=== PATIENT | male | born 1960 | race Caucasian/White ===

== ENCOUNTER 2017-01-04 15:26 | Emergency (ER) | payer OTHER ==
[~2017-01-04] VITALS: Ht 182.9 cm; Wt 113.4 kg
[~2017-01-04 15:26] MED LIST: ASPIRIN EC81 MG PO; BACTRIM DS TAB1 EACH PO; CARVEDILOL25 MG; CLONIDINE1 EAC1; DIFLUCAN150 MG PO; FLUCONAZOLE150 MG PO; FORTAMET500 MG; GUAIFENESIN AC473 ML PO; LISINOPRIL20 MG PO; NORCO 5-325 TA1 EACH PO; NYSTATIN100000 UN1 PO; NYSTATIN15 GM TP; PROAIR HFA8.5 GM IH; PROVENTIL HFA6.7 GM INH; ZITHROMAX250 MG PO; ZOCOR10 MG
[2017-01-04] MEDS ORDERED: LISINOPRIL20 MG PO (17:29)
--- NOTE | 2017-01-05 16:30 | EKG ---
[facility] [address] [facility] [address] [facility] [place] [address] Signed Normal sinus rhythm Normal ECG No previous ECGs available Confirmed by LIZET CHI MD ([id number]) on 01/05/2017 4:30:17 PM Electronically Signed By: LIZET CHI MD 01/05/17 1630 PATIENT NAME: CINTHIANABIL CELIA Electrocardiogram DATE OF : 62 PHYSICIAN: LIZET CHI MD REPORT #: [id number] REPORT IS CONFIDENTIAL AND NOT TO BE RELEASED WITHOUT AUTHORIZATION
== END 2017-01-04 17:39 | disposition home or self-care (01) ==
LOC: ED 15:26
DX: I27.0 Primary pulmonary hypertension (principal); I10 Essential (primary) hypertension; E11.9 Type 2 diabetes mellitus without complications; E78.00 Pure hypercholesterolemia, unspecified; Z88.8 Allergy status to other drugs, medicaments and biological substances; Z79.899 Other long term (current) drug therapy; Z79.82 Long term (current) use of aspirin
CPT/HCPCS: 80053; 85025; 93005; 93010; 99284

== ENCOUNTER 2017-03-05 09:25 | Emergency (ER) | payer OTHER ==
[~2017-03-05] VITALS: Ht 182.9 cm; Wt 117.9 kg
[2017-03-05] MEDS ORDERED: GABAPENTIN300 MG PO (09:37)
[2017-03-05] MEDS ORDERED: HYDROCHLOROTHIA25 MG PO (09:37)
[2017-03-05] MEDS ORDERED: NORCO 5-325 TA1 EACH PO (12:13)
[2017-03-05] MEDS ORDERED: FLAGYL500 MG PO (12:13)
[2017-03-05] MEDS ORDERED: DIFLUCAN150 MG PO (12:13)
[2017-03-05] MEDS ORDERED: ZOFRAN ODT4 MG PO (12:13)
[2017-03-05] MEDS ORDERED: CIPRO500 MG PO (12:13)
== END 2017-03-05 12:49 | disposition home or self-care (01) ==
LOC: ED 09:25
DX: K57.32 Diverticulitis of large intestine without perforation or abscess without bleeding (principal); I10 Essential (primary) hypertension; E78.00 Pure hypercholesterolemia, unspecified; Z88.8 Allergy status to other drugs, medicaments and biological substances; Z79.899 Other long term (current) drug therapy
CPT/HCPCS: 74177; 80053; 81001; 85025; 96361; 96374; 96375; 99284; J2270; J2405; J7030; Q9967

== ENCOUNTER 2018-02-20 09:44 | Emergency (ER) | payer OTHER ==
[~2018-02-20] VITALS: Ht 182.9 cm; Wt 117.9 kg
--- OUTSIDE RECORDS SUMMARY | ~2018-02-20 | XMS | Clinical Summary ---
Demographics + + + | Address | [address] | | | [place] [address] | + + + | Home Phone | | + + + | Preferred Language | Unknown | + + + | Marital Status | | + + + | Sabianism Affiliation | 1013 | + + + | Race | Unknown | + + + | Ethnic Group | Unknown | + + + Author + + + | Author | [facility] [employer] [facility] | + + + | Organization | [facility] [employer] [facility] | + + + | Address | Unknown | + + + | Phone | Unavailable | + + + Support + + + + + | Name | Relationship | Address | Phone | + + + + + | Beth Vicente | ECON | [address] | | | | | [place] | | | | | [address] | | + + + + + Care Team Providers + +------+ + | Care Correspondence Specialist Name | Role | Phone | + +------+ + | Isacc Enciso MD | PP | | + +------+ + Allergies + + + + + + | Active Allergy | Reactions | Severity | Noted | Comments | | | | | Date | | + + + + + + | Procaine | Nausea and Vomiting | Low | 09/11/19 | | | | | | 14 | | + + + + + + Current Medications + + +-------+---------+------+------+-------+ | Prescription | Sig. | Disp. | Refills | Star | End | Statu | | | | | | t | Date | s | | | | | | Date | | | + + +-------+---------+------+------+-------+ | CLONIDINE HCL PO | Take by mouth. | | | | | Activ | | | | | | | | e | + + +-------+---------+------+------+-------+ | carvedilol (COREG) | Take 25 mg by mouth | | | | | Activ | | 25 MG tablet | 2 (two) times daily | | | | | e | | | with meals. | | | | | | + + +-------+---------+------+------+-------+ | simvastatin | Take 10 mg by mouth | | | | | Activ | | (ZOCOR) 10 MG tablet | nightly. | | | | | e | + + +-------+---------+------+------+-------+ | metFORMIN | Take 500 mg by mouth | | | | | Activ | | (GLUCOPHAGE) 500 MG | 2 (two) times daily | | | | | e | | tablet | with meals. | | | | | | + + +-------+---------+------+------+-------+ | aspirin 81 MG EC | Take 325 mg by mouth | | | | | Activ | | tablet | daily with | | | | | e | | | breakfast. | | | | | | + + +-------+---------+------+------+-------+ Active Problems + + + | Problem | Noted Date | + + + | Bacterial pneumonia, unspecified | 09/10/2013 | + + + | HTN (hypertension) | 09/10/2013 | + + + | DM type 2 (diabetes mellitus, type 2) | 09/10/2013 | + + + | Dyslipidemia | 09/10/2013 | + + + | Chest pain, unspecified | 09/10/2013 | + + + Encounters +--------+ + + + + | Date | Type | Specialty | Care Team | Description | +--------+ + + + + | 11/22/ | Documentati | | Radha Tucker, | | | 2017 | on Only | | MD | | +--------+ + + + + from Last 3 Months Family History + +------+ + + | Relation | Name | Status | Comments | + +------+ + + | Father | | | | + +------+ + + | Mother | | Alive | | + +------+ + + Social History + +-------+ +--------+------+ | Tobacco Use | Types | Packs/Day | Years | Date | | | | | Used | | + +-------+ +--------+------+ | Never Smoker | | | | | + +-------+ +--------+------+ + +---+---+---+ | Smokeless Tobacco: | | | | | Current User | | | | + +---+---+---+ + + | Comments: 1 can every 2 days | + + + + +---------+ + | Alcohol Use | Drinks/We | oz/Week | Comments | | | ek | | | + + +---------+ + | Yes | 3 Cans | 1.8 | daily | | | of beer | | | + + +---------+ + + + + | Sex Assigned at | Date Recorded | | | | + + + | Not on file | | + + + Last Filed Vital Signs + + + + | Vital Sign | Reading | Time Taken | + + + + | Blood Pressure | 136/77 | 09/11/2013 11:13 AM PDT | + + + + | Pulse | 57 | 09/11/2013 11:13 AM PDT | + + + + | Temperature | 36.7 C (98 F) | 09/11/2013 11:13 AM PDT | + + + + | Respiratory Rate | 16 | 09/11/2013 11:13 AM PDT | + + + + | Oxygen Saturation | 99% | 09/11/2013 11:13 AM PDT | + + + + | Inhaled Oxygen | - | - | | Concentration | | | + + + + | Weight | 110.9 kg (244 lb 6.4 | 09/11/2013 12:27 AM PDT | | | oz) | | + + + + | Height | 185.4 cm (6' 1") | 09/11/2013 12:27 AM PDT | + + + + | Body Mass Index | 32.24 | 09/11/2013 12:27 AM PDT | + + + + Plan of Treatment +--------+ + + + + | Date | Type | Specialty | Care Team | Description | +--------+ + + + + | 04/17/ | Initial | | Radha Tucker, | | | 2018 | consult | | MD Nimesh Harden | | | | | | [address], | | | | | | [place] [address] | | | | | | [phone] | | | | | | | | +--------+ + + + + + + + + + | Health Maintenance | Due Date | Last Done | Comments | + + + + + | Diabetic Eye Exam | | | | | | 2 | | | + + + + + | Diabetic Foot Exam | | | | | | 2 | | | + + + + + | Microalbumin | | | | | Screening | 2 | | | + + + + + | Vaccine: | | | | | Dtap/Tdap/Td (1 - | 1 | | | | Tdap) | | | | + + + + + | Vaccine: | | | | | Pneumococcal 19- | 1 | | | | (PPSV23 only) Medium | | | | | Risk (1 of 1 - | | | | | PPSV23) | | | | + + + + + | Colon Cancer | | | | | Screening | 2 | | | | (Colonoscopy) | | | | + + + + + | Hemoglobin A1c | | 09/11/2013 | | | | 4 | | | + + + + + | Vaccine: Influenza | | | | | (#1) | 8 | | | + + + + + Results Not on filefrom Last 3 Months Insurance +-------+--------+ +------+-------+---------+ | Payer | Benefi | Subscriber | Type | Phone | Address | | | t Plan | ID | | | | | | / | | | | | | | Group | | | | | +-------+--------+ +------+-------+---------+ | AETNA | AETNA | [id number] | | | | | | - GEHA | | | | | +-------+--------+ +------+-------+---------+ + +--------+ +--------+ + + | Guarantor Name | Accoun | Relation to | Date | Phone | Billing Address | | | t Type | Patient | of | | | | | | | | | | + +--------+ +--------+ + + | NABIL VICENTE | Person | Self [birth year] | Home: | [address] | | | al/Fam | | 1961 | [phone] | [place] | | | [place] | | | [phone] | [phone] | + +--------+ +--------+ + +
--- OUTSIDE RECORDS SUMMARY | ~2018-02-20 | XMS | Clinical Summary ---
Demographics + + + | Address | [address] | | | [place] [address] | + + + | Home Phone | | + + + | Preferred Language | Unknown | + + + | Marital Status | | + + + | Zoroastrianism Affiliation | Unknown | + + + | Race | Unknown | + + + | Ethnic Group | Unknown | + + + Author + + + | Author | [facility] | | | and [place] | + + + | Organization | [facility] | | | and [place] | + + + | Address | Unknown | + + + | Phone | Unavailable | + + + Support + + + + + | Name | Relationship | Address | Phone | + + + + + | Beth Vicente | ECON | [address] | | | | | [place] | | | | | [address] | | + + + + + Care Team Providers + +------+ + | Care Best Worker Name | Role | Phone | + +------+ + | Brad Frank PA-C | PP | | + +------+ + Allergies + + + + + + | Active Allergy | Reactions | Severity | Noted | Comments | | | | | Date | | + + + + + + | Novocain | Nausea And Vomiting | Low | 11/14/19 | | | | | | 14 | | + + + + + + Current Medications + + +--------+---------+------+------+-------+ | Prescription | Sig. | Disp. | Refills | Star | End | Statu | | | | | | t | Date | s | | | | | | Date | | | + + +--------+---------+------+------+-------+ | metFORMIN | Take 500 mg by mouth | | | | | Activ | | (GLUCOPHAGE) 500 mg | 2 times daily (with | | | | | e | | tablet | breakfast & | | | | | | | | dinner). | | | | | | + + +--------+---------+------+------+-------+ | clonidine | Take 0.2 mg by mouth | | | | | Activ | | (CATAPRES) 0.2 MG | 2 times daily. | | | | | e | | tablet | | | | | | | + + +--------+---------+------+------+-------+ | aspirin 81 mg | Take 81 mg by mouth | | | | | Activ | | chewable tablet | Daily. | | | | | e | + + +--------+---------+------+------+-------+ | simvastatin | Take 1 tablet by | 30 | 6 | 03/2 | | Activ | | (ZOCOR) 10 mg | mouth nightly. | tablet | | 6/20 | | e | | tabletIndications: | | | | 15 | | | | CAD (coronary artery | | | | | | | | disease) | | | | | | | + + +--------+---------+------+------+-------+ | carvedilol (COREG) | Take 1 tablet by | 60 | 6 | 03/2 | | Activ | | 25 mg | mouth 2 times daily | tablet | | 6/20 | | e | | tabletIndications: | (with breakfast & | | | 15 | | | | Essential | dinner). | | | | | | | hypertension | | | | | | | + + +--------+---------+------+------+-------+ Active Problems + + + | Problem | Noted Date | + + + | Chest pain on exertion | 12/10/2013 | + + + + + | Overview: Cardiac Cath 11/26/13, LVEF 60%. | + + + +---+ | Diabetes mellitus (HCC) | | + +---+ + + | Overview: pre diabetic | + + + +---+ | Reflux | | + +---+ | Hypertension | | + +---+ + + | Overview: Echo 12/06/13, LVEF 63%. | + + Family History + + +------+ + | Medical History | Relation | Name | Comments | + + +------+ + | Heart attack | Father | | | + + +------+ + + +---------+ + + | Relation | Name | Status | Comments | + +---------+ + + | Father | | | [place] | | | | (Age | | | | | 42) | | + +---------+ + + | Mother | | Alive | | + +---------+ + + | Other | Uncle, | | [place] | | | Twin | (Age | | | | | 42) | | + +---------+ + + Social History + +-------+ +--------+------+ | Tobacco Use | Types | Packs/Day | Years | Date | | | | | Used | | + +-------+ +--------+------+ | Never Smoker | | | | | + +-------+ +--------+------+ + +------+---+---+ | Smokeless Tobacco: | Chew | | | | Current User | | | | + +------+---+---+ + + | Comments: 35 years; 3 cans weekly | + + + + +---------+ + | Alcohol Use | Drinks/We | oz/Week | Comments | | | ek | | | + + +---------+ + | Yes | | | 3-6 beers daily | + + +---------+ + + + + | Sex Assigned at | Date Recorded | | | | + + + | Not on file | | + + + Last Filed Vital Signs + + + + | Vital Sign | Reading | Time Taken | + + + + | Blood Pressure | 142/86 | 09/18/2014832 PDT | + + + + | Pulse | 76 | 09/18/2014832 PDT | + + + + | Temperature | 36.2 C (97.2 F) | 11/26/2013 0900 PDT | + + + + | Respiratory Rate | 16 | 09/18/2014832 PDT | + + + + | Oxygen Saturation | 97% | 11/26/2013 1225 PDT | + + + + | Inhaled Oxygen | - | - | | Concentration | | | + + + + | Weight | 110.7 kg (244 lb) | 09/18/2014832 PDT | + + + + | Height | 185.4 cm (6' 1") | 09/18/2014832 PDT | + + + + | Body Mass Index | 32.19 | 09/18/2014 0833 PDT | + + + + Plan of Treatment + + + + + | Health [...] Not on filefrom Last 3 Months Insurance + +--------+ +------+ +---------+ | Payer | Benefi | Subscriber | Type | Phone | Address | | | t Plan | ID | | | | | | / | | | | | | | Group | | | | | + +--------+ +------+ +---------+ | [employer] | HEALTH | [id number] | PPO | [phone] | | | COMP | | | [phone] | | | | PPO | | | | | + +--------+ +------+ +---------+ + +--------+ +--------+ + + | Guarantor [...] ST | | | al/Fam | | 2 | [phone] | [place] [address] | | | [place] | | | [address] | | + +--------+ +--------+ + +
--- OUTSIDE RECORDS SUMMARY | ~2018-02-20 | XMS | Encounter Summary ---
Demographics + + + | Address | [address] | | | [place] [address] | + + + | Home Phone | | + + + | Preferred Language | Unknown | + + + | Marital Status | | + + + | Scientologist Affiliation | 1013 | + + + | Race | Unknown | + + + | Ethnic Group | Unknown | + + + Author + + + | Author | [facility] [employer] [facility] | + + + | Organization | [facility] [employer] [facility] | + + + | Address | Unknown | + + + | Phone | Unavailable | + + + Support + + + + + | Name | Relationship | Address | Phone | + + + + + | Beth Fung | ECON | [address] | | | | | [place] | | | | | [address] | | + + + + + Care Team Providers + +------+ + | Care Instructional Coordinator Name | Role | Phone | + +------+ + | Isacc Enciso MD | PCP | | + +------+ + Encounter Details +--------+ + + + + | Date | Type | Department | Care Team | Description | +--------+ + + + + | 11/22/ | Documentati | [facility] | Radha Tucker, | | | 2018 | on Only | [facility] | [address] | | | | | [address] | [address], | | | | | [place] | [place] [address] | | | | | [address] | [phone] | | | | | [phone] | | | +--------+ + + + + Social History + +-------+ +--------+------+ [...] on file | | + + + as of this encounter Plan of Treatment +--------+ + + + + | Date | Type | Specialty | Care Team | Description | +--------+ + + + + | 04/17/ | Initial | Cardiology | Radha Tucker, | | | 2018 | consult | | MD Nimesh Harden | | | | | | Dr [address], | | | | | | [place] [address] | | | | | | [phone] | | | | | | | | +--------+ + + + + as of this encounter Visit Diagnoses Not on filein this encounter"
--- OUTSIDE RECORDS SUMMARY | ~2018-02-20 | XMS | Clinical Summary ---
Demographics + + + | Address | [address] | | | [place] [address] | + + + | Home Phone | | + + + | Preferred Language | Unknown | + + + | Marital Status | | + + + | Faith Affiliation | 1013 | + + + | Race | Unknown | + + + | Ethnic Group | Unknown | + + + Author + + + | Author | [facility] [employer] [facility] | + + + | Organization | [facility] [employer] [facility] | + + + | Address | Unknown | + + + | Phone | Unavailable | + + + Support + + + + + | Name | Relationship | Address | Phone | + + + + + | Beth Vicente | ECON | [address] | | | | | [place] | | | | | [address] | | + + + + + Care Team Providers + +------+ + | Care Lathe Turner Name | Role | Phone | + [...] | | | | | | [place] [address] | | | | | | [phone] | | | | | | | [...] +-------+--------+ +------+-------+---------+ | [employer]ETNA | AETNA | [id number] | | | | | | - [...] | [place] | | | [address] | [phone] | + +--------+ +--------+ + +
--- OUTSIDE RECORDS SUMMARY | ~2018-02-20 | XMS | Encounter Summary ---
Demographics + + + | Address | [address] | | | [place] [address] | + + + | Home Phone | | + + + | Preferred Language | Unknown | + + + | Marital Status | | + + + | Temple Affiliation | 1013 | + + + | Race | Unknown | + + + | Ethnic Group | Unknown | + + + Author + + + | Author | [facility] [employer] [facility] | + + + | Organization | [facility] [employer] [facility] | + + + | Address | Unknown | + + + | Phone | Unavailable | + + + Support + + + + + | Name | Relationship | Address | Phone | + + + + + | Beth Fung | ECON | [address] | | | | | [place] | | | | | [address] | | + + + + + Care Team Providers + +------+ + | Care Beveling Machine Operator Name | Role | Phone | + +------+ + | Isacc Enciso MD | PCP | | + +------+ + Encounter Details +--------+ + + + + | Date | Type | Department | Care Team | Description | +--------+ + + + + | 11/22/ | Documentati | [facility] | Radha Tucker, | | | 2018 | on Only | [facility] | [address] | | | | | [address] | [address], | | | | | [place] | [place] [address] | | | | | [address] | [phone] | | | | | [phone] | | | +--------+ + + + [...] | | | | | | [place] [address] | | | | | | [phone] | | | | | | | | +--------+ + + + + as of this encounter Visit Diagnoses Not on filein this encounter"
--- OUTSIDE RECORDS SUMMARY | ~2018-02-20 | XMS | Clinical Summary ---
Demographics + + + | Address | [address] | | | [place] [address] | + + + | Home Phone | | + + + | Preferred Language | Unknown | + + + | Marital Status | | + + + | Sabianism Affiliation | Unknown | + + + | Race | Unknown | + + + | Ethnic Group | Unknown | + + + Author + + + | Author | [facility] | | | and [place] | + + + | Organization | [facility] | | | and [place] [...] [place] | | | | | [address] | | + + + + + Care Team Providers + +------+ + | Care Latin Professor Name | Role | Phone | + [...] + + | Father | | | [place] | | | | (Age | | | | | 42) | | + +---------+ + + | Mother | | Alive | | + +---------+ + + | Other | Uncle, | | [place] | | | Twin | (Age | [...] +------+ +---------+ | [employer] | HEALTH | [id number] | PPO | [phone] | | [...] | | al/Fam | | 2 | [phone] | [place] [address] | | | [place] | | | [address] | | + +--------+ +--------+ + +
[~2018-02-20 09:44] MED LIST changes: +CIPRO500 MG PO; +FLAGYL500 MG PO; +GABAPENTIN300 MG PO; +HYDROCHLOROTHIA25 MG PO; +ZOFRAN ODT4 MG PO
== END 2018-02-20 10:06 | disposition home or self-care (01) ==
LOC: ED 09:44
DX: M79.644 Pain in right finger(s) (principal)

== ENCOUNTER 2019-11-26 09:55 | Day surgery (SDC) | payer OTHER ==
[~2019-11-26] VITALS: Ht 182.9 cm; Wt 117.9 kg
[~2019-11-26 09:55] MED LIST changes: +ENDOCET 7.5-321 EACH PO; +HYDROMORPHONE HC4 MG PO; +IBUPROFEN600 MG PO; +MOTRIN IB200 MG PO; +TYLENOL EXTRA500 MG PO; +TYLOPHEN500 MG PO
--- NOTE | 2019-11-26 11:51 | NUR ---
11/26/19 1151 Janna Gonzalez 1145 PATIENT ARRIVES TO PACU SLEEPING, BUT AWAKENS WITH VERBAL STIMULI. RESP EVEN AND UNLABORED, MASK AT 6 LITERS. 1150 PATIENT AWAKE BUT DROWSY. OXYGEN MASK OFF. ROOM AIR SATS >92%. RESP EVEN AND UNLABORED. REPORTS INCREASING PAIN, BUT NO NAUSEA. VERBAL ORDER FOR PAIN AND NAUSEA MEDS GIVEN BY JEZ ROBLES.
[2019-11-26] MEDS ORDERED: IBUPROFEN600 MG PO (12:05)
[2019-11-26] MEDS ORDERED: OXYCODON-ACETA1 EAC2 PO (12:11)
--- NOTE | 2019-11-26 12:37 | NUR ---
AMBULATED TO BR WITH ONE PERSON STAND BY ASSIST. STEADY ON FEET. DENIES NAUSEA OR INCREAS IN PAIN WITH MOVEMENT. VOIDED UNMEASURED URINE. RETURNED TO BED. SCD'S ON. GLASSES RETURNED TO PATIENT. MEDICATED PER EMAR FOR 4/10 LEFT SCROTAL PAIN.
--- NOTE | 2019-11-26 14:14 | NUR ---
REVIEWED DISCHARGE INSTRUCTIONS WITH PT. ALL QUESTIONS ANSWERED. PT AWARE OF FOLLOW UP APPOINTMENT.
--- NOTE | 2019-11-27 09:31 | OR ---
[facility] [address] [place], [place] [address] Signed DATE OF OPERATION: 11/26/2019 SURGEON: Stephy Berry MD PREOPERATIVE DIAGNOSIS: Persistent recurrent left scrotal hydrocele. POSTOPERATIVE DIAGNOSIS: Persistent recurrent left scrotal hydrocele. PROCEDURE: Left transscrotal hydrocelectomy (excision of hydrocele sac with posterior pexy). ANESTHESIA: General LMA, Toby Landrum CRNA. INDICATION: This 58-year-old white man is a patient of Bear Tapia MD. He had bilateral inguinal hernias and underwent sequential repair first the right side then the left. On the left, repair was done on August 20, 2019. The patient is rather obese and large. Both hernias have held up well, but he did develop a left-sided hydrocele. Initially, it is thought possibly related to seroma. He did undergo serial aspiration of the hydrocele with complete resolution, but with prompt return of fluid. Though he has never been known to have epididymitis, he was treated with doxycycline, which had no bearing on recurrent hydrocele. Hydrocele does not appear to be a communicating type. An attempt at a seroma cath placement was made, however, that lasted only 24 hours, he dislodged it himself as it was uncomfortable. He is admitted at this time to undergo a left transscrotal hydrocele resection and possible drain placement. He understands the risks of bleeding, infection, recurrent hydrocele, and other unforeseen complications and wished to proceed. FINDINGS: Through a transscrotal approach, a rather typical appearing hydrocele sac was noted. There was approximately 200 mL within the hydrocele itself of clear serous fluid. The testicle itself was normal as was the epididymis. Bilateral excision of hydrocele sac was accomplished with posterior pexy of the edge of the hydrocele. Complete mobilization of the testicle and cord to secure both edges, posteriorly was not undertaken as is typical. The posterior elements were allowed to remain in place. Through a left groin incision, a 7 mm flat Tao drain was placed into the left Electronically Signed By: STEPHY BERRY MD 11/27/19 0931 PATIENT NAME: NABIL VICENTE OPERATIVE REPORT DATE OF : 62 REPORT #: [id number] PHYSICIAN: STEPHY BERRY MD PCP: BEAR TAPIA MD REPORT IS CONFIDENTIAL AND NOT TO BE RELEASED WITHOUT AUTHORIZATION [facility] [address] [place], [place] [address] Signed hemiscrotum, though he did not have much bleeding at all otherwise. DESCRIPTION OF PROCEDURE: The patient was brought into the operating room, given a general LMA anesthetic. Ancef was given. Sequential compression device stockings used and heparin subcutaneously administered. The genitalia and groin areas were prepared with a DuraPrep solution and draped sterilely. A transverse incision was made in the left hemiscrotum. Dissection was carried through skin sharply into the subcutaneous tissue and dartos layer with electrocautery with meticulous care. A thin membrane overlying the hydrocele sac was incised hemostatically and the large hydrocele ultimately delivered through the wound. A small hole was made in the hydrocele sac allowing for decompression of clear straw-colored hydrocele fluid. Once completed, an Allis clamp applied superior and inferiorly on the hydrocele sac remnant and the hydrocele opened. This revealed the contents of the hydrocele sac, which included the testicle and epididymis and so on. Complete mobility from the posterior elements of the scrotal sac was not undertaken. Excision of the hydrocele membrane bilaterally was undertaken independent with meticulous care for hemostasis. The cut edge was secured to the posterior subcutaneous elements with running 2-0 Vicryl on each side. Through a separate left groin stab incision, a 7 mm flat Tao drain was delivered through the inguinal canal and into the left hemiscrotum. This secured the skin with nylon suture. The dartos muscle layer was reapproximated with running 3-0 Vicryl and skin was closed with a running subcuticular 4-0 Vicryl. Steri-Strips were applied as was a fluff gauze dressing and ultimately, an athletic supporter. The patient was allowed to emerge from anesthesia, extubated, and taken to the recovery room in good condition. Blood losswas quite minimal. Sponge, needle, and instrument counts were reported as correct x2. Stephy Berry MD /MODL /[id number] cc: Bear Tapia MD Copies: Electronically Signed By: STEPHY BERRY MD 11/27/19 0931 PATIENT NAME: NABIL VICENTE OPERATIVE REPORT DATE OF : 62 REPORT #: [id number] PHYSICIAN: STEPHY BERRY MD PCP: BEAR TAPIA MD REPORT IS CONFIDENTIAL AND NOT TO BE RELEASED WITHOUT AUTHORIZATION [place] [id number] [facility] [place] [address] Signed ~ Electronically Signed By: STEPHY BERRY MD 11/27/19 0931 PATIENT NAME: CINTHIANABIL OPERATIVE REPORT DATE OF : 62 REPORT #: [id number] PHYSICIAN: STEPHY BERRY MD PCP: BEAR TAPIA MD REPORT IS CONFIDENTIAL AND NOT TO BE RELEASED WITHOUT AUTHORIZATION
--- NOTE | 2019-11-28 11:07 | PATH ---
[facility] [address] [place], [place] [address] Signed SPECIMEN(S): A LEFT HYDROCELE SAC SPECIMEN SOURCE: A. LEFT HYDROCELE SAC CLINICAL HISTORY: Left hydrocele. Hydrocelectomy. FINAL PATHOLOGIC DIAGNOSIS: Hydrocele sac, left, hydrocelectomy: - Consistent with hydrocele sac. NAL:cml:C2NR MICROSCOPIC EXAMINATION: Histologic sections of all submitted blocks are examined by light microscopy. These findings, together with the gross examination, support the pathologic diagnosis. GROSS DESCRIPTION: The specimen, labeled "Nabil Vicente," and designated on the requisition "portion of hydrocele sac," is received in formalin and consists of 6.5 x 4.2 x 0.6 cm aggregate of pink to violaceous membranous tissue. J2Ee Java Developer sections are submitted in cassette (A1). FB (under the direct supervision of a pathologist) The Gross Description was prepared using a voice recognition system. The report was reviewed for accuracy; however, sound-alike word errors, addition and/or deletions may occur. If there is any question about this report, please contact Client Services. PERFORMING LABORATORY: The technical component was performed by [facility], [address] [place] [id number] (Cigarette Making Machine Operator: Radha Espinoza MD; CLIA# [id number]). [facility] [address] [address] (CLIA# [id number]). Diagnostician: Amarilis Johnson MD Pathologist Electronically Signed 11/28/2019 PATIENT NAME: NABIL VICENTE PATHOLOGY DATE OF : 62 REPORT #: [id number] PHYSICIAN: CHANTELLE PATHOLOGY PCP: AURELIO TAPIA MD REPORT IS CONFIDENTIAL AND NOT TO BE RELEASED WITHOUT AUTHORIZATION [address] [place], [place] [address] Signed Copies: ~ PATIENT NAME: NABIL VICENTE PATHOLOGY DATE OF : 62 REPORT #: [id number] PHYSICIAN: CHANTELLE PATHOLOGY PCP: AURELIO TAPIA MD REPORT IS CONFIDENTIAL AND NOT TO BE RELEASED WITHOUT AUTHORIZATION
== END 2019-11-26 13:45 | disposition home or self-care (01) ==
LOC: DS 09:55 → OPS 09:55 → DS 10:30 → OPS 13:45
PROVIDERS: Surgery
PROC: 0VB70ZZ Excision of Left Tunica Vaginalis, Open Approach (ICD-10-PCS; principal; 2019-11-26 10:30)
DX: N43.3 Hydrocele, unspecified (principal); I10 Essential (primary) hypertension; E66.01 Morbid (severe) obesity due to excess calories; Z79.899 Other long term (current) drug therapy; Z68.35 Body mass index [BMI] 35.0-35.9, adult
CPT/HCPCS: 00920; 00926; J0690; J1100; J1170; J1644; J1885; J2001; J2405; J2704; J3010; J7121

== ENCOUNTER 2021-10-18 18:56 | Emergency (ER) | payer OTHER ==
[~2021-10-18] VITALS: Ht 182.9 cm; Wt 117.0 kg
[~2021-10-18 18:56] MED LIST changes: +OXYCODON-ACETA1 EAC2 PO
[2021-10-18] MEDS ORDERED: FLUCONAZOLE150 MG PO (19:49)
[2021-10-18] MEDS ORDERED: CIPROFLOXACIN500 MG PO (19:49)
[2021-10-18] MEDS ORDERED: ATORVASTATIN CA20 MG PO (19:50)
[2021-10-18] MEDS ORDERED: TAMSULOSIN HCL0.4 MG PO (19:50)
[2021-10-18] MEDS ORDERED: METRONIDAZOLE500 MG PO (19:50)
[2021-10-18] MEDS ORDERED: LISINOPRIL-HCT1 EACH PO (21:04)
[2021-10-18] MEDS ORDERED: METFORMIN HCL500 MG PO (21:05)
[2021-10-18] MEDS ORDERED: PREGABALIN150 MG PO (21:05)
[2021-10-18] MEDS ORDERED: HYDROCODON-ACE1 EA10 PO (21:15)
[2021-10-18] MEDS ORDERED: PYRIDIUM200 MG PO (21:15)
== END 2021-10-18 21:31 | disposition home or self-care (01) ==
LOC: ED 18:56
DX: R10.32 Left lower quadrant pain (principal); R31.9 Hematuria, unspecified; I10 Essential (primary) hypertension; E78.00 Pure hypercholesterolemia, unspecified; Z88.8 Allergy status to other drugs, medicaments and biological substances; Z79.899 Other long term (current) drug therapy; Z79.84 Long term (current) use of oral hypoglycemic drugs
CPT/HCPCS: 36415; 51702; 51798; 74177; 80053; 81001; 83690; 85025; 87088; 99284-25; A9270; J1170; J2405; Q9967

== ENCOUNTER 2021-10-20 11:18 | Emergency (ER) | payer OTHER ==
[~2021-10-20] VITALS: Ht 182.9 cm; Wt 116.6 kg
[~2021-10-20 11:18] MED LIST changes: +ATORVASTATIN CA20 MG PO; +CIPROFLOXACIN500 MG PO; +HYDROCODON-ACE1 EA10 PO; +LISINOPRIL-HCT1 EACH PO; +METFORMIN HCL500 MG PO; +METRONIDAZOLE500 MG PO; +PREGABALIN150 MG PO; +PYRIDIUM200 MG PO; +TAMSULOSIN HCL0.4 MG PO
--- OUTSIDE RECORDS SUMMARY | 2021-10-20 11:20 | XMS ---
PreManage Notification: NABIL VICENTE Security Chart Picker Events No recent Security Events currently on file CRITERIA MET - [facility] - 2 Visits in 30 Days CARE PROVIDERS There are no care providers on record at this time. Abiola has no Care Guidelines for this patient. [place] [facility] ([facility] MO.) [facility] NOTE: Visits indicate total known visits. ED/C VISIT TRACKING (12 MO.) [facility] [facility] COMPLAINT: - SYNCOPE 10/18/2021 18:56 [facility] [place] TYPE: Emergency COMPLAINT: - URINE PROBLEM INPATIENT VISIT TRACKING (12 MO.) No inpatient visits to display in this time frame [email or web address]
[2021-10-20] MEDS ORDERED: PHENAZOPYRIDIN200 MG PO (11:36)
--- NOTE | 2021-10-20 19:11 | EKG ---
[facility] [address] [facility] [place], [place] [address] Signed Normal sinus rhythm Normal ECG When compared with ECG of 29-JUL-2019 10:35, No significant change was found Confirmed by LIZET CHI MD ([id number]) on 10/20/2021 7:10:57 PM Electronically Signed By: LIZET CHI MD 10/20/211910 PATIENT NAME: NABIL VICENTE Electrocardiogram DATE OF : 62 PHYSICIAN: LIZET CHI MD REPORT #: [id number] REPORT IS CONFIDENTIAL AND NOT TO BE RELEASED WITHOUT AUTHORIZATION
== END 2021-10-20 13:46 | disposition home or self-care (01) ==
LOC: ED 11:18
DX: E86.0 Dehydration (principal); E87.6 Hypokalemia; R55 Syncope and collapse; I10 Essential (primary) hypertension; E78.00 Pure hypercholesterolemia, unspecified; Z88.8 Allergy status to other drugs, medicaments and biological substances; Z79.899 Other long term (current) drug therapy; Z79.84 Long term (current) use of oral hypoglycemic drugs
CPT/HCPCS: 36415; 71045; 80053; 81001; 84484; 85025; 93005; 93010; 99284-25; A9270; J7030

== ENCOUNTER 2022-10-04 14:29 | Emergency (ER) | payer OTHER ==
[~2022-10-04] VITALS: Ht 182.9 cm; Wt 118.4 kg
[~2022-10-04 14:29] MED LIST changes: +ONDANSETRON ODT8 MG PO; +PHENAZOPYRIDIN200 MG PO
--- NOTE | 2022-10-04 20:39 | EKG ---
[facility] [address] [facility] [place], [place] [address] Signed Normal sinus rhythm Normal ECG When compared with ECG of 25-AUG-2022 09:57, No significant change was found Confirmed by SHARON LAST MD ([id number]) on 10/04/2022 8:39:06 PM Electronically Signed By: SHARON LAST MD 10/04/222038 PATIENT NAME: CINTHIANABIL Electrocardiogram DATE OF : 62 PHYSICIAN: SHARON LAST MD REPORT #: [id number] REPORT IS CONFIDENTIAL AND NOT TO BE RELEASED WITHOUT AUTHORIZATION
== END 2022-10-04 19:58 | disposition home or self-care (01) ==
LOC: ED 14:29
DX: R55 Syncope and collapse (principal); I10 Essential (primary) hypertension; E11.9 Type 2 diabetes mellitus without complications; Z88.8 Allergy status to other drugs, medicaments and biological substances; Z79.899 Other long term (current) drug therapy; Z79.84 Long term (current) use of oral hypoglycemic drugs
CPT/HCPCS: 36415; 71045; 80053; 83735; 84484; 85025; 93005; 93010

== ENCOUNTER 2024-06-14 12:55 | Emergency (ER) | payer OTHER ==
[~2024-06-14] VITALS: Ht 182.9 cm; Wt 121.4 kg
[~2024-06-14 12:55] MED LIST changes: +SIMVASTATIN10 MG PO
--- OUTSIDE RECORDS SUMMARY | 2024-06-14 13:02 | XMS ---
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 06/08/2023 11:29 - Patient eloped with IV in place. - Patient eloped before treatment completed. - Patient with suicidal and/or homicidal ideations eloped. Details: LWBS CRITERIA MET - Group Notification CARE PROVIDERS -, [facility] Dentist: Survey Field Technician [facility] PHONE: [phone] -[place]- Dentist: Survey Field Technician [facility] PHONE: [phone] [facility]/Hospers: [facility] PHONE: [phone] Abiola has no Care Guidelines for this patient. Maribell VISIT COUNT (12 MO.) 2 [facility] TOTAL 2 NOTE: Visits indicate total known visits. ED/UCC VISIT TRACKING (12 MO.) 06/14/2024 12:55 [facility] [place] TYPE: Emergency COMPLAINT: - COUGH 11/29/2023 10:[address] [facility] [place] TYPE: Emergency COMPLAINT: - SYNCOPE DIAGNOSES: - Allergy status to other drugs, medicaments and biological substances - Essential (primary) hypertension - Other superintendent terminal (current) drug therapy - Syncope and collapse - Type 2 diabetes mellitus without complications INPATIENT VISIT TRACKING (12 MO.) No inpatient visits to display in this time frame [email or web address]
[2024-06-14 13:38] LABS: BASOPHILS 1.1 % (0-2); EOSINOPHILS 3.3 % (0-6); HEMATOCRIT 45.3 % (35.0-50.0); HEMOGLOBIN 15.5 g/dL (12.0-18.0); LYMPHOCYTES 22.2 % (24-44); MCH 29.4 (27-36); MCHC 34.2 g/dl (30-36); MCV 85.9 fl (81-99); MONOCYTES 9.6 % (0-12); NEUTROPHILS 63.8 % (39-80); PLATELET COUNT 216 K/uL (140-440); RBC 5.27 M/ul (4.3-5.7); RDW 14.8 (10.5-15.0)
[2024-06-14 13:57] LABS: ALBUMIN 3.8 g/dL (3.4-5.0); ALBUMIN/GLOBULIN RATIO 1.12 (1.1-2.4); ANION GAP 12.8 (7-21); BILIRUBIN, TOTAL 0.5 ng/dL (0.2-1.0); BUN/CREATININE RATIO 8.46 (6.0-28.6); CALCIUM 8.4 mg/dL (8.5-10.1); CREATININE, SERUM 1.3 mg/dL (0.70-1.30); MAGNESIUM 1.8 mg/dL (1.8-2.4); POTASSIUM 3.8 mmol/L (3.5-5.1); PROTEIN, TOTAL 7.2 g/dL (6.4-8.2)
[2024-06-14] MEDS ORDERED: ALBUTEROL/IPRATROPIUM 3 ML NEB INH ONE (14:15)
[2024-06-14] MEDS ORDERED: methylPREDNISolone SOD SUCC 125 MG/2 ML VIAL IV ONE (14:15)
[2024-06-14 15:26] LABS: INFLUENZA B NAA NEGATIVE (NEGATIVE); RESPIRATORY SYNCYTIAL VIR NAA NEGATIVE (NEGATIVE)
[2024-06-14] MEDS ORDERED: DELSYM COUGH PO (17:31)
[2024-06-14] MEDS ORDERED: PREDNISONE20 MG PO (17:31)
[2024-06-14] MEDS ORDERED: VENTOLIN HFA18 GM INH (17:31)
[2024-06-14 17:43] VITALS: BP 140/91
--- NOTE | 2024-06-15 19:30 | EKG ---
[facility] [address] [facility] [place] [address] Signed Normal sinus rhythm Normal ECG When compared with ECG of 29-NOV-2023 10:34, No significant change was found Confirmed by Juana Page MD ([id number]) on 06/15/2024 7:30:05 PM Electronically Signed By: JUANA PAGE MD 06/15/241929 PATIENT NAME: CINTHIANABIL Electrocardiogram DATE OF : 62 PHYSICIAN: JUANA PAGE MD REPORT #: [id number] REPORT IS CONFIDENTIAL AND NOT TO BE RELEASED WITHOUT AUTHORIZATION
== END 2024-06-14 17:44 | disposition home or self-care (01) ==
LOC: ED 12:55
PROVIDERS: Emergency Medicine
DX: J06.9 Acute upper respiratory infection, unspecified (principal); R05.9 Cough, unspecified; E11.9 Type 2 diabetes mellitus without complications; Z88.8 Allergy status to other drugs, medicaments and biological substances; Z79.899 Other long term (current) drug therapy; Z79.84 Long term (current) use of oral hypoglycemic drugs; Z11.52 Encounter for screening for COVID-19
CPT/HCPCS: 36415; 71045; 74018; 80053; 83735; 83880; 84484; 85025; 87502; 93005; 93010; 96374; 99285-25; J2919; U0002

== ENCOUNTER 2025-03-10 18:17 | Emergency (ER) | payer OTHER ==
[~2025-03-10] VITALS: Ht 182.9 cm; Wt 130.4 kg
[~2025-03-10 18:17] MED LIST changes: +DELSYM COUGH PO; +PREDNISONE20 MG PO; +VENTOLIN HFA18 GM INH
--- OUTSIDE RECORDS SUMMARY | 2025-03-10 18:24 | XMS ---
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 EVera VISIT COUNT (12 MO.) [address] [facility] [address] [facility] TOTAL 2 NOTE: Visits indicate total known visits. 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
[2025-03-10] MEDS ORDERED: LISINOPRIL40 MG PO (18:29)
[2025-03-10 18:36] LABS: BASOPHILS 0.4 % (0.2-1.2); EOSINOPHILS 0.7 % (0.8-7.0); LYMPHOCYTES 12.0 % (21.8-53.1); MCH 28.9 PG (25.7-32.2); MCHC 33.5 g/dL (32.3-36.5); MCV 86.2 fL (79.0-92.2); MONOCYTES 7.9 % (5.3-12.2); NEUTROPHILS 78.6 % (34.0-67.9); RBC 5.57 M/uL (4.63-6.08)
[2025-03-10 18:50] LABS: ALT (SGPT) 30.0 U/L (14-59); AST (SGOT) 15.0 U/L (15-37); GLOMERULAR FILTRATION RATE,EST 85.0 mL/min (>60); PROTEIN, TOTAL 6.9 g/dL (6.4-8.2); UREA NITROGEN 11.0 mg/dL (7-18)
[2025-03-10] MEDS ORDERED: MORPHINE SULFATE 4 MG/ML VIAL IV ONE (20:00)
[2025-03-10] MEDS ORDERED: LACTATED RINGER'S 1,000 ML IV ONE (20:00)
[2025-03-10] MEDS ORDERED: ONDANSETRON ODT8 MG PO (21:28)
[2025-03-10] MEDS ORDERED: FLUCONAZOLE150 MG PO (21:28)
[2025-03-10] MEDS ORDERED: AMOX TR-K CLV1 EAC1 PO (21:28)
[2025-03-10] MEDS ORDERED: HYDROCODONE BIT/ACETAMINOPHEN 5/325 MG 1 TAB HOME.PACK PO ONE (21:30)
[2025-03-10] MEDS ORDERED: ONDANSETRON 4 MG HOME.PACK SL ONE (21:30)
[2025-03-10] MEDS ORDERED: AMOXICILLIN/CLAVULANATE K 875 MG HOME.PACK PO ONE (21:30)
[2025-03-10 21:43] VITALS: BP 148/92
== END 2025-03-10 21:44 | disposition home or self-care (01) ==
LOC: ED 18:17
PROVIDERS: Emergency Medicine
DX: K57.32 Diverticulitis of large intestine without perforation or abscess without bleeding (principal); E11.9 Type 2 diabetes mellitus without complications; I10 Essential (primary) hypertension; Z88.8 Allergy status to other drugs, medicaments and biological substances; Z79.899 Other long term (current) drug therapy
CPT/HCPCS: 36415; 74177; 80053; 83690; 85025; 96374; 96375; 96376; 99284-25; A9270; J2270; J2405; J7121

== ENCOUNTER 2025-04-09 17:07 | Emergency (ER) | payer OTHER ==
[~2025-04-09] VITALS: Ht 182.9 cm; Wt 132.0 kg
[~2025-04-09 17:07] MED LIST changes: +AMOX TR-K CLV1 EAC1 PO; +LISINOPRIL40 MG PO
--- OUTSIDE RECORDS SUMMARY | 2025-04-09 17:12 | XMS ---
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 EVera VISIT COUNT (12 MO.) 3 [facility] TOTAL 3 NOTE: Visits indicate total known visits. ED/UCC VISIT TRACKING (12 MO.) 04/09/2025 17:09 [facility] [place] TYPE: Emergency COMPLAINT: - PAIN IN "INTESTINES" 03/10/2025 18:18 [facility] [place] TYPE: Emergency COMPLAINT: - ABDOM PAIN DIAGNOSES: - Allergy status to other drugs, medicaments and biological substances - Diverticulitis of large intestine without perforation or abscess without bleeding - Essential (primary) hypertension - Left lower quadrant pain - Other termite treater (current) drug therapy - Type 2 diabetes mellitus without complications 06/14/2024 12:[address] 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
[2025-04-09 17:41] LABS: BASOPHILS 0.5 % (0.2-1.2); BLOOD/HGB, URINE TRACE-L (Negative); EOSINOPHILS 1.5 % (0.8-7.0); KETONE, URINE NEGATIVE (Negative); LEUK ESTERASE, URINE NEGATIVE (negative); LYMPHOCYTES 15.5 % (21.8-53.1); MCH 28.5 PG (25.7-32.2); MCHC 33.4 g/dL (32.3-36.5); MCV 85.4 fL (79.0-92.2); MONOCYTES 7.8 % (5.3-12.2); NEUTROPHILS 74.4 % (34.0-67.9); NITRITE, URINE NEGATIVE (negative); RBC 5.47 M/uL (4.63-6.08)
[2025-04-09 17:49] LABS: BACTERIA, URINE NONE SEEN /hpf (negative); CASTS, URINE NEGATIVE \\lpf; CRYSTALS, URINE NONE SEEN (0-1+); EPITHELIAL CELLS, URINE NONE SEEN /lpf (0-1+); REFLEX CULTURE, URINE No (No)
[2025-04-09 17:56] LABS: ALT (SGPT) 26.0 U/L (14-59); AST (SGOT) 12.0 U/L (15-37); GLOMERULAR FILTRATION RATE,EST 92.0 mL/min (>60); PROTEIN, TOTAL 7.1 g/dL (6.4-8.2); UREA NITROGEN 16.0 mg/dL (7-18)
[2025-04-09] MEDS ORDERED: AMOX TR-K CLV1 EAC1 PO (18:41)
[2025-04-09] MEDS ORDERED: ONDANSETRON ODT4 MG PO (18:41)
[2025-04-09] MEDS ORDERED: FLUCONAZOLE150 MG PO (18:41)
[2025-04-09] MEDS ORDERED: HYDROCODONE BIT/ACETAMINOPHEN 5/325 MG 1 TAB HOME.PACK PO ONE (19:00)
[2025-04-09] MEDS ORDERED: AMOXICILLIN/CLAVULANATE K 875 MG TAB PO ONE (19:00)
[2025-04-09 19:06] VITALS: BP 168/97
== END 2025-04-09 19:00 | disposition home or self-care (01) ==
LOC: ED 17:07
PROVIDERS: Emergency Medicine
DX: R10.32 Left lower quadrant pain (principal); I10 Essential (primary) hypertension; E11.9 Type 2 diabetes mellitus without complications; E78.00 Pure hypercholesterolemia, unspecified; Z79.84 Long term (current) use of oral hypoglycemic drugs; Z79.899 Other long term (current) drug therapy; Z88.8 Allergy status to other drugs, medicaments and biological substances
CPT/HCPCS: 36415; 80053; 81001; 83690; 85025; 99284; A9270

== ENCOUNTER 2025-06-01 08:42 | Emergency (ER) | payer OTHER ==
[~2025-06-01] VITALS: Ht 182.9 cm; Wt 131.4 kg
--- OUTSIDE RECORDS SUMMARY | ~2025-06-01 | XMS | Continuity of Care Document ---
Demographics + + + | Address | [address] | | | [place] [address] | + + + | Preferred Language | Unknown | + + + | Marital Status | | + + + | Zoroastrian Affiliation | Unknown | + + + | Race | White | + + + | Ethnic Group | Not or | + + + Author + + + | Author | [facility] | + + + | Organization | [facility] | + + + | Address | [address] | | | [place] [address] | + + + | Phone | | + + + Care Team Providers + + + + | Care Provider Network Mgr Name | Role | Phone | + + + + Unavailable | Unavailable | + + + + Unavailable | Unavailable | + + + + Allergies No information. Encounters No information. Functional Status No information. Immunizations No information. Medications + + + + | date | description | facility | + + + + | 2025-04-09 00:00 | ONDANSETRON | [facility] | | | | [facility] | + + + + | 2025-03-10 00:00 | FLUCONAZOLE | [facility] | | | | [facility] | + + + + | 2025-04-09 00:00 | FLUCONAZOLE | [facility] | | | | [facility] | + + + + | (no date) | LISINOPRIL | [facility] | | | | [facility] | + + + + | (no date) | HYDRO[place]OTHIAZIDE [facility] [place] | | | [facility] | + + + + | 2025-03-10 00:00 | [place] [facility] | | | [facility] | + + + + | (no date) | L[place]INOPRIL [facility] | | | [facility] | + + + + | (no date) | SIMVASTATIN | [facility] | | | [facility] | + + + + | (no date) | Pregabalin | [facility] | | | [facility] | + + + + | 2025-03-10 00:00 | AMOXICILLIN/POTASSIUM CLAV | [facility] | | | | [facility] | + + + + | 2025-04-09 00:00 | AMOXICILLIN/POTASSIUM CLAV | [facility] | | | | [facility] | + + + + | 2025-03-10 00:00 | HYDROCODONE | [facility] | | | BIT/ACETAMINOPHEN | [facility] | + + + + | (no date) | METFORMIN HCL | [facility] | | | | [facility] | + + + + | (no date) | TAMSULOSIN HCL | [facility] | | | | [facility] | + + + + Problems + + + + | date | description | facility | + + + + | 2025-03-10 00:00 | Diverticulitis | [facility] | | | | [facility] | + + + + Procedures No information. Results/Labs +--------+--------+ +---------+--------+---------+ | test | date | facility | value | unit | notes | +--------+--------+ +---------+--------+---------+ + + | Result panel 1 | + + + + + +---------+ + + | WBC # Bld | 2025-04-09 | | 14.21 | (missing) | (missing) | | Auto | 17:30:07 | [facility] | | | | + + + +---------+ + + + + | Result panel 2 | + + + + + +--------+ + + | Lymphocytes | 2025-04-09 | | 15.5 | (missing) | (missing) | | NFr Bld | 17:30:07 | [facility] | | | | | Auto | [facility] | | | | + + + +--------+ + + + + | Result panel 3 | + + + + + +-------+ + + | Monocytes | 2025-04-09 | | 7.8 | (missing) | (missing) | | NFr Bld Auto | 17:30:07 | [facility] | | | | + + + +-------+ + + + + | Result panel 4 | + + + + + +-------+ + + | Eosinophil | 2025-04-09 | | 1.5 | (missing) | (missing) | | NFr Bld Auto | 17:30:07 | [facility] | | | | + + + +-------+ + + + + | Result panel 5 | + + + + + +-------+ + + | Basophils | 2025-04-09 | | 0.5 | (missing) | (missing) | | NFr Bld Auto | 17:30:07 | [facility] | | | | + + + +-------+ + + + + | Result panel 6 | + + + + + + + + + | Color Ur | 2025-04-09 | | YELLOW | (missing) | (missing) | | Auto | 17:30:07 | [facility] | | | | + + + + + + + + + | Result panel 7 | + + + + + +---------+ + + | Character | 2025-04-09 | | CLEAR | (missing) | (missing) | | Ur | 17:30:07 | [facility] | | | | + + + +---------+ + + + + | Result panel 8 | + + + + + + + + + | Glucose Ur | 2025-04-09 | | NEGATIVE | (missing) | (missing) | | Ql Strip | 17:30:07 | [facility] | | | | + + + + + + + + + | Result panel 9 | + + + + + + + + + | Bilishub Ur | 2025-04-09 | | NEGATIVE | (missing) | (missing) | | Ql Strip | 17:30:07 | [facility] | | | | + + + + + + + + + | Result panel 10 | + + + + + + + + + | Ketonejaimie Ur | 2025-04-09 | | NEGATIVE | (missing) | (missing) | | Ql Strip | 17:30:07 | [facility] | | | | + + + + + + + + + | Result panel 11 | + + + + + + + + + | Sp Gr Ur | 2025-04-09 | | <=1.005 | (missing) | (missing) | | Strip | 17:30:07 | [facility] | | | | + + + + + + + + + | Result panel 12 | + + + + + +--------+ + + | RBC # Bld | 2025-04-09 | | 5.47 | (missing) | (missing) | | Auto | 17:30:07 | [facility] | | | | + + + +--------+ + + + + | Result panel 13 | + + + + + + + + + | Hgb Ur Ql | 2025-04-09 | | TRACE-L | (missing) | (missing) | | Strip | 17:30:07 | [facility] | | | | + + + + + + + + + | Result panel 14 | + + + + + +-------+ + + | pH Ur Strip | 2025-04-09 | | 6.0 | (missing) | (missing) | | | 17:30:07 | [facility] | | | | + + + +-------+ + + + + | Result panel 15 | + + + + + + + + + | Prot Ur | 2025-04-09 | | NEGATIVE | (missing) | (missing) | | Strip-mCnc | 17:30:07 | [facility] | | | | + + + + + + + + + | Result panel 16 | + + + + + + + + + | | 2025-04-09 | | NORMAL | (missing) | (missing) | | Urobilinogen | 17:30:07 | [facility] | | | | | Ur | [facility] Strip-mCnc | | [facility] | | | | + + + + + + + + + | Result panel 17 | + + + + + + + + + | Nitrite Ur | 2025-04-09 | | NEGATIVE | (missing) | (missing) | | Ql Strip | 17:30:07 | [facility] | | | | + + + + + + + + + | Result panel 18 | + + + + + + + + + | Leukocyte | 2025-04-09 | | NEGATIVE | (missing) | (missing) | | esterase Ur | 17:30:07 | [facility] | | | | | Ql Strip [facility] | | | | + + + + + + + + + | Result panel 19 | + + + + + +-------+ + + | RBC #/area | 2025-04-09 | | 0-1 | (missing) | (missing) | | UrnS HPF | 17:30:07 | [facility] | | | | + + + +-------+ + + + + | Result panel 20 | + + + + + +-------+ + + | WBC #/area | 2025-04-09 | | 0-1 | (missing) | (missing) | | UrnS HPF | 17:30:07 | [facility] | | | | + + + +-------+ + + + + | Result panel 21 | + + + + + + + + + | Epi Cells | 2025-04-09 | | NONE SEEN | (missing) | (missing) | | #/area UrnS | 17:30:07 | [facility] | | | | | HPF [facility] | | | | + + + + + + + + + | Result panel 22 | + + + + + + + + + | Crystals | 2025-04-09 | | NONE SEEN | (missing) | (missing) | | Shiva Vail | 17:30:07 | [facility] | | | | + + + + + + + + + | Result panel 23 | + + + + + +--------+ + + | Hgb | 2025-04-09 | | 15.6 | (missing) | (missing) | | Allend-John | 17:30:07 | [facility] | | | | + + + +--------+ + + + + | Result panel 24 | + + + + + + + + + | Bacteria | 2025-04-09 | | NONE SEEN | (missing) | (missing) | | #/area UrnS | 17:30:07 | [facility] | | | | | HPF [facility] | | | | + + + + + + + + + | Result panel 25 | + + + + + + + + + | Casts | 2025-04-09 | | NEGATIVE | (missing) | (missing) | | #/area UrnS | 17:30:07 | [facility] | | | | | LPF [facility] | | | | + + + + + + + + + | Result panel 26 | + + + + + +------+ + + | Bacteria Ur | 2025-04-09 | | No | (missing) | (missing) | | Cult | 17:30:07 | [facility] | | | | + + + +------+ + + + + | Result panel 27 | + + + + + + + + + | Urn Spec | 2025-04-09 | | CLEAN CATCH | (missing) | (missing) | | Collect Meth | 17:30:07 | [facility] | | | | | Ur | [facility] | | | | + + + + + + + + + | Result panel 28 | + + + + + +-------+---------+ + | Glucose | 2025-04-09 | | 147 | mg/dL | (missing) | | Ruydl-John | 17:30:07 | [facility] | | | | + + + +-------+---------+ + + + | Result panel 29 | + + + + + +------+---------+ + | BUN | 2025-04-09 | | 16 | mg/dL | (missing) | | SerPl-mCnc | 17:30:07 | [facility] | | | | + + + +------+---------+ + + + | Result panel 30 | + + + + + +--------+---------+ + | Creat | 2025-04-09 | | 0.93 | mg/dL | (missing) | | SerPl-mCnc | 17:30:07 | [facility] | | | | + + + +--------+---------+ + + + | Result panel 31 | + + + + + +------+ + + | eGFRcr | 2025-04-09 | | 92 | (missing) | (missing) | | SerPlBld | 17:30:07 | [facility] | | | | | CKD-EPI 2020 | [facility] | | | | + + + +------+ + + + + | Result panel 32 | + + + + + +---------+ + + | BUN/Creat | 2025-04-09 | | 17.20 | (missing) | (missing) | | SerPl | 17:30:07 | [facility] | | | | + + + +---------+ + + + + | Result panel 33 | + + + + + +-------+ + + | Sodium | 2025-04-09 | | 139 | (missing) | (missing) | | SerPl-sCnc | 17:30:07 | [facility] | | | | + + + +-------+ + + + + | Result panel 34 | + + + + + +--------+ + + | Hct VFr.DF | 2025-04-09 | | 46.7 | (missing) | (missing) | | Bld Auto | 17:30:07 | [facility] | | | | + + + +--------+ + + + + | Result panel 35 | + + + + + +-------+ + + | Potassium | 2025-04-09 | | 3.9 | (missing) | (missing) | | SerPl-sCnc | 17:30:07 | [facility] | | | | + + + +-------+ + + + + | Result panel 36 | + + + + + +-------+ + + | Chloride | 2025-04-09 | | 102 | (missing) | (missing) | | SerPl-sCnc | 17:30:07 | [facility] | | | | + + + +-------+ + + + + | Result panel 37 | + + + + + +------+ + + | CO2 | 2025-04-09 | | 27 | (missing) | (missing) | | [facility] | 17:30:07 | [facility] | | | | + + + +------+ + + + + | Result panel 38 | + + + + + +--------+ + + | Anion Gap | 2025-04-09 | | 13.9 | (missing) | (missing) | | SerPl | 17:30:07 | [facility] | | | | | Calculated.4 | [facility] | [facility] | | | | + + + +--------+ + + + + | Result panel 39 | + + + + + +-------+---------+ + | Calcium | 2025-04-09 | | 8.8 | mg/dL | (missing) | | SerPl-mCnc | 17:30:07 | [facility] | | | | + + + +-------+---------+ + + + | Result panel 40 | + + + + + +-------+ + + | Prot | 2025-04-09 | | 7.1 | (missing) | (missing) | | Ronaldo-John | 17:30:07 | [facility] | | | | + + + +-------+ + + + + | Result panel 41 | + + + + + +-------+ + + | Albumin | 2025-04-09 | | 3.6 | (missing) | (missing) | | SerPl-John | 17:30:07 | [facility] | | | | + + + +-------+ + + + + | Result panel 42 | + + + + + +-------+ + + | Globulin | 2025-04-09 | | 3.5 | (missing) | (missing) | | Ser-mCalexia | 17:30:07 | [facility] | | | | + + + +-------+ + + + + | Result panel 43 | + + + + + +--------+ + + | | 2025-04-09 | | 1.03 | (missing) | (missing) | | Albumin/Glob | 17:30:07 | [facility] | | | | | SerPl [facility] | | | | + + + +--------+ + + + + | Result panel 44 | + + + + + +-------+---------+ + | Bilirub | 2025-04-09 | | 0.5 | mg/dL | (missing) | | Rudyl-Ambrosenc | 17:30:07 | [facility] | | | | + + + +-------+---------+ + + + | Result panel 45 | + + + + + +--------+ + + | RBC Auto | 2025-04-09 | | 85.4 | (missing) | (missing) | | | 17:30:07 | [facility] | | | | + + + +--------+ + + + + | Result panel 46 | + + + + + +------+ + + | AST | 2025-04-09 | | 12 | (missing) | (missing) | | [facility] | 17:30:07 | [facility] | | | | + + + +------+ + + + + | Result panel 47 | + + + + + +------+ + + | ALT | 2025-04-09 | | 26 | (missing) | (missing) | | SerPl-cCnc | 17:30:07 | [facility] | | | | + + + +------+ + + + + | Result panel 48 | + + + + + +-------+ + + | ALP | 2025-04-09 | | 100 | (missing) | (missing) | | SerPl-cCnc | 17:30:07 | [facility] | | | | + + + +-------+ + + + + | Result panel 49 | + + + + + +------+ + + | Lipase | 2025-04-09 | | 30 | (missing) | (missing) | | SerPl-cCnc | 17:30:07 | [facility] | | | | + + + +------+ + + + + | Result panel 50 | + + + + + +--------+ + + | MCH RBC Qn | 2025-04-09 | | 28.5 | (missing) | (missing) | | Auto | 17:30:07 | [facility] | | | | + + + +--------+ + + + + | Result panel 51 | + + + + + +--------+ + + | MCHC RBC | 2025-04-09 | | 33.4 | (missing) | (missing) | | Auto-EntMCnc | 17:30:07 | [facility] | | | | + + + +--------+ + + + + | Result panel 52 | + + + + + +-------+ + + | Platelet # | 2025-04-09 | | 218 | (missing) | (missing) | | Bld Auto | 17:30:07 | [facility] | | | | + + + +-------+ + + + + | Result panel 53 | + + + + + +--------+ + + | Neutrophils | 2025-04-09 | | 74.4 | (missing) | (missing) | | NFr Bld | 17:30:07 | [facility] | | | | | Auto | [facility] | | | | + + + +--------+ + + Social History +--------+ + + | date | description | facility | +--------+ + + Vital Signs + + + +---------+ | date | measurement | value | units | + + + +---------+ | 2025-03-10 00:00 | BMI | 39.0 | kg/m2 | + + + +---------+ | 2025-03-10 00:00 | BP_diastolic | 92 | mmHg | + + + +---------+ | 2025-03-10 00:00 | BP_systolic | 148 | mmHg | + + + +---------+ | 2025-03-10 00:00 | heart_rate | 88 | /min | + + + +---------+ | 2025-03-10 00:00 | height_metric | 182.88 | cm | + + + +---------+ | 2025-03-10 00:00 | height_standard | 72 | in | + + + +---------+ | 2025-03-10 00:00 | o2_saturation | 96 | % | + + + +---------+ | 2025-03-10 00:00 | respiration_rate | 18 | /min | + + + +---------+ | 2025-03-10 00:00 | | 99 | F | | | temperature_standar | | | | | d | | | + + + +---------+ | 2025-03-10 00:00 | weight_metric | 130.399 | kg | + + + +---------+ | 2025-03-10 00:00 | weight_standard | 287.481 | lb | + + + +---------+ | 2025-04-09 00:00 | BMI | 39.5 | kg/m2 | + + + +---------+ | 2025-04-09 00:00 | BP_diastolic | 97 | mmHg | + + + +---------+ | 2025-04-09 00:00 | BP_systolic | 168 | mmHg | + + + +---------+ | 2025-04-09 00:00 | heart_rate | 93 | /min | + + + +---------+ | 2025-04-09 00:00 | height_metric | 182.88 | cm | + + + +---------+ | 2025-04-09 00:00 | height_standard | 72 | in | + + + +---------+ | 2025-04-09 00:00 | o2_saturation | 96 | % | + + + +---------+ | 2025-04-09 00:00 | respiration_rate | 16 | /min | + + + +---------+ | 2025-04-09 00:00 | | 98.4 | F | | | temperature_standar | | | | | d | | | + + + +---------+ | 2025-04-09 00:00 | weight_metric | 132.001 | kg | + + + +---------+ | 2025-04-09 00:00 | weight_standard | 291.012 | lb | + + + +---------+"
[~2025-06-01 08:42] MED LIST changes: +ONDANSETRON ODT4 MG PO
--- OUTSIDE RECORDS SUMMARY | 2025-06-01 08:48 | XMS ---
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: [facility] Current FAMILY PHONE: [phone] Abiola has no Care Guidelines for this patient. EVera VISIT COUNT (12 MO.) 4 [facility] [place] TOTAL 4 NOTE: Visits indicate total known visits. 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) use of oral hypoglycemic drugs - Other mcc (current) drug therapy - Pure hypercholesterolemia, unspecified - Type 2 diabetes mellitus without complications 03/10/2025 18:18 [facility] [place] TYPE: Emergency COMPLAINT: - ABDOM PAIN DIAGNOSES: - Allergy status to other drugs, medicaments and biological substances - Diverticulitis of large intestine without perforation or abscess without bleeding - Essential (primary) hypertension - Left lower quadrant pain - Other predatory animal exterminator (current) drug therapy - Type 2 diabetes mellitus without complications 06/14/2024 12:55 [facility] [place] TYPE: Emergency COMPLAINT: - COUGH DIAGNOSES: - Acute upper respiratory infection, unspecified - Allergy status to other drugs, medicaments and biological substances - Cough, unspecified - Encounter for screening for COVID-19 - termite treater (current) use of oral hypoglycemic drugs - Other predatory animal exterminator (current) drug therapy - Shortness of breath - Type 2 diabetes mellitus without complications - Wheezing INPATIENT VISIT TRACKING (12 MO.) No inpatient visits to display in this time frame [email or web address]
[2025-06-01] MEDS ORDERED: ALBUTEROL SULFATE 0.5% 2.5 MG/0.5 ML VIAL INH ONE (09:00)
[2025-06-01] MEDS ORDERED: ALBUTEROL/IPRATROPIUM 3 ML NEB INH ONE (09:00)
[2025-06-01 09:05] LABS: BASOPHILS 1.3 % (0.2-1.2); EOSINOPHILS 10.8 % (0.8-7.0); LYMPHOCYTES 21.4 % (21.8-53.1); MCH 28.8 PG (25.7-32.2); MCHC 32.9 g/dL (32.3-36.5); MCV 87.6 fL (79.0-92.2); MONOCYTES 6.6 % (5.3-12.2); NEUTROPHILS 59.5 % (34.0-67.9); RBC 5.24 M/uL (4.63-6.08)
[2025-06-01] MEDS ORDERED: TRELEGY ELLIPT1 EACH INH (09:18)
[2025-06-01 09:33] LABS: ALT (SGPT) 32.0 U/L (14-59); AST (SGOT) 19.0 U/L (15-37); GLOMERULAR FILTRATION RATE,EST 75.0 mL/min (>60); PROTEIN, TOTAL 7.0 g/dL (6.4-8.2); UREA NITROGEN 12.0 mg/dL (7-18)
[2025-06-01] MEDS ORDERED: PREDNISONE20 MG PO (10:53)
[2025-06-01 11:10] VITALS: BP 185/93
--- NOTE | 2025-06-01 21:01 | EKG ---
[facility] [address] [place] [address] Signed Normal sinus rhythm Normal ECG When compared with ECG of 14-JUN-2024 14:43, No significant change was found Confirmed by Patricia Cardenas MD () on 06/01/2025 9:01:26 PM Electronically Signed By: PATRICIA CARDENAS MD 06/01/252100 PATIENT NAME: CINTHIANABIL Electrocardiogram DATE OF : 62 PHYSICIAN: PATRICIA CARDENAS MD REPORT #: [id number] REPORT IS CONFIDENTIAL AND NOT TO BE RELEASED WITHOUT AUTHORIZATION
== END 2025-06-01 11:11 | disposition home or self-care (01) ==
LOC: ED 08:42
PROVIDERS: Emergency Medicine
DX: J98.01 Acute bronchospasm (principal); I10 Essential (primary) hypertension; E11.9 Type 2 diabetes mellitus without complications; Z88.8 Allergy status to other drugs, medicaments and biological substances
CPT/HCPCS: 36415; 71045; 80053; 83880; 84484; 85025; 93005; 93010; 94640; 96374; 99285-25; J2919